=== PATIENT | female | born 1965 | race African-American/Black ===

== ENCOUNTER → 2020-03-25 | Outpatient (CLI) | payer OTHER ==
--- NOTE | 2020-03-25 14:30 | RAD ---
FOOT RIGHT 2V DATE: 03/25/2020 12:00 AM INDICATION: BACK PAIN AND FEET PAIN. COMPARISON: None. FINDINGS: Bones: There is no evidence of acute fracture or dislocation. Hallux valgus. Joints: The joint spaces are normal. Miscellaneous: None. IMPRESSION: No acute osseous abnormality. Electronically signed by: Barney Wakefield MD (03/25/2020 2:27 PM) [id number]
--- NOTE | 2020-03-25 14:31 | RAD ---
LUMBAR SPINE 2-3V DATE: 03/25/2020 12:00 AM INDICATION: low back pain COMPARISON: None. FINDINGS: Five non-rib bearing lumbar-type vertebral bodies are present. Bones/Alignment: No evidence of acute compression fracture. There is no listhesis. Joints: Mild multilevel degenerative disc disease Miscellaneous: Atherosclerotic aortic calcification. IMPRESSION: Mild lumbar spondylosis. Electronically signed by: Barney Wakefield MD (03/25/2020 2:28 PM) [id number]
== END | disposition home or self-care (01) ==
LOC: RAD 11:29
PROVIDERS: ATTEND Anesthesiology Pain Medicine
DX: M47.816 Spondylosis without myelopathy or radiculopathy, lumbar region (principal); M51.36 Other intervertebral disc degeneration, lumbar region; I70.0 Atherosclerosis of aorta
CPT/HCPCS: 72100; 73620

== ENCOUNTER → 2021-09-02 | Outpatient (CLI) | payer OTHER ==
--- NOTE | 2021-09-02 13:44 | RAD ---
Study: MRI of the left hip without contrast INDICATION: Osteonecrosis of the left hip. COMPARISON: None. TECHNIQUE: Multiplanar MR imaging of the left hip performed without the use of intravenous or intra-a rticular contrast. FINDINGS: Bones/hip: Large area of avascular necrosis involving the left femoral head extending from posterior/ superior to anterior and with sparing of the posterior humeral head. Surrounding edema which extends through the femoral neck into the intertrochanteric region. Necrosis approaches the fovea capitis. Ar ticular surface collapse with a few millimeter of depression. There is also a prominent region of avascular necrosis at the right femoral head with active marrow e valentino and a component of articular surface collapse. Incompletely evaluated lower lumbar spine. No appreciable active marrow edema at the sacroiliac joint s or pubic symphysis. Labrum/cartilage: High-grade and full-thickness chondral loss involving both the acetabulum and femor al head. Torn labrum best appreciated from anterior/superior to posterior/superior, coronal T2 images 12 through 18. Ligamentum teres: Intact. Greater trochanteric bursa: Unremarkable. Musculotendinous: No tendon tear or advanced tendinosis surrounding the left hip. Mild reactive edema of the few muscles adjacent to the hip. Within normal limits ischiofemoral space. Miscellaneous: Small/moderate left hip joint effusion. Small joint effusion on the right. Mild perica psular soft tissue edema on the left. Unremarkable sciatic nerve bundle. Numerous uterine fibroids. IMPRESSION: 1. 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 High-grade and full-thickness chondrosis at the left hip along all with tearing of the labrum. Smal l/moderate joint effusion and mild reactive periarticular soft tissue edema. 2. There is also a large area of active avascular necrosis involving the right femoral head with a c omponent of articular surface collapse as well. 3. Fibroid uterus. Electronically signed by: ROSANNE GAMBOA MD (09/02/2021 1:42 PM) [id number]
== END ==
LOC: MRI 09:42
PROVIDERS: ATTEND Nurse Practitioner
DX: S73.192A Other sprain of left hip, initial encounter (principal); D25.9 Leiomyoma of uterus, unspecified; R60.9 Edema, unspecified; M87.052 Idiopathic aseptic necrosis of left femur; M94.352 Chondrolysis, left hip; M25.452 Effusion, left hip; M25.451 Effusion, right hip; M81.8 Other osteoporosis without current pathological fracture; X58.XXXA Exposure to other specified factors, initial encounter; Y93.89 Activity, other specified; Y92.89 Other specified places as the place of occurrence of the external cause; Y99.8 Other external cause status
CPT/HCPCS: 73721